=== PATIENT | female | born 1970 | race Caucasian/White ===

== ENCOUNTER 2018-01-07 07:30 | Outpatient (RCR) | payer MEDICAID, SELFPAY ==
--- NOTE | 2017-12-10 08:30 | PTTR_ITS ---
DATE: 12/10/17 SUBJECTIVE: The patient noted that she had reduced feeling of laxity and hyperextension of the L knee while donning the Rock tape, it remains on today. Compliant with HEP. No knee pain since I have last seen her. Therapeutic procedures (59128k8). L quad stretch via PKB, patellofemoral and patellofemoral mobilization all planes. * x See flow sheet: * x Provided skilled instruction in proper exercise performance: proximal core intrinsic stabilization, and hip girdle strengthening to improve myokinetic support of the knee. She then proceeded to wellness program per my direction. Direct treatment time: 30 mins Total treatment time: 45 mins JH/dl
--- NOTE | 2017-12-22 11:09 | PTTR_ITS ---
DATE: 12/22/17 SUBJECTIVE: Has been away on vacation x 1 week, so what not very complaint with her exercises. She did try and practice her kegels frequently. Her knee has overall felt fairly good, but did notice it felt unstable and had some pain referral to the lateral lower leg [place]. She felt more discomfort and slightly unstable when she removed the rock tape. OBJECTIVE: KX applied to all codes N/A Manual therapy: (68015i8). L PF and TF mobilizations all planes for general neurofacilitation IASTM down regulation through L lateral tibia fasica, and patella framing. Rock taping application L knee Demonstrates full, painless ROM Therapeutic procedures (84313a1). * HEP review: * x See flow sheet: * x Provided skilled instruction in proper exercise performance: * Provided skilled manual cues to facilitate proper muscle recruitment and/ or movement pattern: * Other: Finished program with animal attendants and trainers, with less skilled activities. Special Test: Pain with patella compression and gliding, mild crepitus appreciated. Direct treatment time: 30 minutes Total treatment time: 30 minutes Assessment: Minimal improvements thus far, partly due to vacation absence. 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 Expect as we resume frequent strengthening, per POC, will work toward our rehab goals. Plan: Per POC
--- NOTE | 2017-12-24 11:56 | PTTR_ITS ---
DATE: 12/24/17 SUBJECTIVE: Yoana states her knee is feeling good. She has had no difficulty since last being seen. OBJECTIVE: Findings: Demonstrating no limitations in her left knee motion today. No accessory pain. Reapplied Rock tape. Therapeutic procedures (85814n9). * x See flow sheet: * Skilled cueing provided throughout for proper exercise performance. Direct treatment time: 30 minutes Total treatment time: 45 minutes Patient ended with Wellness Program for 15 minutes per my directions to parent trainer at no charge. Assessment: Yoana is responding favorably to P.T. management thus far with reduction of symptoms, but she does require a great deal of cueing for proper body mechanics and movement pattern, so I believe it is fair to say that her poor biomechanical alignment and myokinematics instability would certainly contribute to her patellofemoral mal tracking. Plan: Proceed per POC seeing patient 2x per week. ROCIO/albaro
--- NOTE | 2017-12-29 14:45 | PTTR_ITS ---
DATE: 12/29/17 SUBJECTIVE: Yoana stating that she really had minimal symptoms with her knee. She has some sensations of stiffness occasionally and they are sharp along the medial patella but much improved compared to pre PT status. OBJECTIVE: Therapeutic procedures (33814p6). Cross friction desensitization along the medial patella. * X See flow sheet * X Provided skilled instruction in proper exercise performance Direct treatment time: 30 minutes Total treatment time: 30 minutes
--- NOTE | 2017-12-31 08:00 | PTTR_ITS ---
DATE: 12/31/17 Therapeutic procedures (77268x5). * X See flow sheet: * X Provided skilled instruction in proper exercise performance: completes less skilled activities with wellness trainer supervision. Direct treatment time: 20 mins Total treatment time: 20 mins JH/dl
--- NOTE | 2018-01-05 08:33 | PTTR_ITS ---
DATE: 01/05/18 SUBJECTIVE: Yoana stating that her knee itself is feeling very well. Occasionally , she has to go laterally down her stairs, but this is reduced in frequency and when she does do this she feels like it is just related to overall muscle stiffness. She complains more of bilateral hamstring tightness and glutinitus from her workouts. Today she is having some restriction with L posterior hamstring. OBJECTIVE: Manual therapy: (28899r1).IASTM down regulation through the L calf and hamstring for posterior LE fascial release, followed by prolonged hamstring. Pt is educated in self hamstring stretches utilizing strap, as well at edge of chair. Therapeutic procedures (64300b0). * X See flow sheet: * X Provided skilled instruction in proper exercise performance: and beginning instruction for progression onto MSP. Direct treatment time: 45 min Total treatment time: 45 min ROCIO/dianne
--- NOTE | 2018-01-07 08:11 | PTTR_ITS ---
DATE: 01/07/18 SUBJECTIVE: Knee is feeling great. She feel prepared to transition onto MSP. OBJECTIVE: KX applied to all codes Manual therapy: (24818k). Therapeutic procedures (91358lz/c). Began MSP with minimal cues needed. See flow sheet. Direct treatment time: 0 minutes Total treatment time: 30 minutes Assessment: Symptoms under good control. Demonstrates understanding of strengthening program, to transition onto MSP. Plan: MSP x 1 month.
== END 2018-01-09 23:59 | disposition home or self-care (01) ==
LOC: PT 07:30
PROVIDERS: PCP Family Medicine; Referring Provider Family Medicine; Visit Provider Family Medicine
DX: M22.42 Chondromalacia patellae, left knee (principal); M62.81 Muscle weakness (generalized); R29.898 Other symptoms and signs involving the musculoskeletal system
CPT/HCPCS: 97110; 97140

== ENCOUNTER 2018-03-04 10:07 | Outpatient (REF) | payer MEDICAID, SELFPAY ==
--- NOTE | 2018-03-04 08:30 | PAPFT_PTH ---
PATIENT: Anastasia Thrasher LOC: [facility] U#:[id number] AGE/SX: 47/F ROOM: RE03/04/[address]: Kourtney Bah : 1970 BED: DIS: 03/04/2018 SPEC #: [id number] RECD: 03/04/18 12:55 STATUS: GRETEL RELuz #: [id number] GLORY: 03/04/18 08:[address]: Kourtney Bah DEPT: [facility] Cytology RECD BY: Ana Dwyer Tissues: 1 - CX/ENDOCX FOR PAP SMEARS Procedures: PAP THIN PREP/UVM Screening HPV DNA PROBE Comments: [id number]
== END 2018-03-04 10:27 ==
LOC: NCHCN 10:07
PROVIDERS: PCP Family Medicine; Visit Provider Family Medicine
DX: Z12.4 Encounter for screening for malignant neoplasm of cervix (principal); Z11.51 Encounter for screening for human papillomavirus (HPV); Z00.00 Encounter for general adult medical examination without abnormal findings
CPT/HCPCS: 88142; 87624

== ENCOUNTER 2019-03-09 08:21 | Outpatient (REF) | payer OTHER, SELFPAY ==
[2019-03-09 13:10] LABS: ALT 22 U/L (14-59); AST 12 U/L (15-37); Alkaline Phosphatase 59 U/L (46-116); Anion Gap 10.3 mmol/L (3-11); BUN 13 mg/dL (7-18); Bilirubin, Total 0.6 mg/dL (0.2-1.0); CO2 26.7 mmol/L (21.0-32.0); CREATININE 0.93 mg/dL (0.55-1.02); Calculated LDL 144 mg/dL; Chloride 103 mmol/L (98-107); Cholesterol 224 mg/dL (50-200); Glucose 102 mg/dL (70-100); HDL Cholesterol 44 mg/dL (40-60); Potassium 4.2 mmol/L (3.5-5.1); Sodium 140 mmol/L (136-145); Total Protein 7.1 g/dL (6.4-8.2); Triglyceride 180 mg/dL (30-150)
== END 2019-03-09 08:41 ==
LOC: NCHCN 08:21
PROVIDERS: PCP Family Medicine; Visit Provider Family Medicine
DX: Z00.00 Encounter for general adult medical examination without abnormal findings (principal); I10 Essential (primary) hypertension; E78.5 Hyperlipidemia, unspecified
CPT/HCPCS: 80053; 80061

== ENCOUNTER 2019-04-02 01:24 | Outpatient (CLI) | payer OTHER, SELFPAY ==
--- NOTE | 2019-04-02 14:02 | DI.US_ITS ---
EXAM: US PELVIS AND TRANSVAGINAL CLINICAL HISTORY: MENORRHAGIA X 6 MONTHS, 8-10 WEEK SIZE UTERUS, N92.0 TECHNIQUE: Ultrasound performed using standard protocol. COMPARISON: No exams were available for comparison FINDINGS: The uterus measures 2.4 centimeters long x 7.1 centimeters AP x 7.3 centimeters transverse. There ar e several hypoechoic masses seen within the uterus consistent with fibroids. Largest measures 3.3 ce ntimeters. The endometrial stripe is within normal limits at 8.2 millimeters. The right ovary was n ot visualized. No right adnexal masses seen. The left ovary measures 3.5 x 3.2 x 3.1 centimeters. There is a 2.8 x 2.6 x 2.8 centimeter simple cyst on the left ovary. There is blood flow to the left ovary. No evidence of torsion. No free fluid or hydronephrosis is present. IMPRESSION: Fibroid uterus.
== END 2019-04-02 01:44 ==
PROVIDERS: PCP Family Medicine; Visit Provider Nurse Practitioner Family
DX: N92.0 Excessive and frequent menstruation with regular cycle (principal); N85.2 Hypertrophy of uterus; D25.9 Leiomyoma of uterus, unspecified; N83.292 Other ovarian cyst, left side
CPT/HCPCS: 76830; 76856

== ENCOUNTER 2019-04-29 16:10 | Outpatient (REF) | payer OTHER, SELFPAY ==
--- NOTE | 2019-04-29 15:45 | ENDOMET_PTH ---
PATIENT: Anastasia Thrasher LOC: [facility] U#:[id number] AGE/SX: 48/F ROOM: RE04/29/[address]: Sherry Emanuel : 1970 BED: DIS: 04/29/2019 SPEC #: [id number] RECD: 04/29/19 17:34 STATUS: GRETEL REQ #: [id number] GLORY: 04/29/19 15:[address]: Sherry Emanuel DEPT: Surgical Specimen RECD BY: Ana Dwyer ENTERED: 04/29/19 17:35 SP TYPE: Endomet OTHR DR: Kourtney Bah Tissues: 1 - ENDOMETRIUM BX/ZAIRE Procedures: GROSS AND MICRO LEVEL 4 Comments: [id number]
== END 2019-04-29 16:30 ==
LOC: LBN 16:10
PROVIDERS: PCP Family Medicine; Visit Provider Obstetrics & Gynecology Gynecology
DX: N85.01 Benign endometrial hyperplasia (principal); N93.9 Abnormal uterine and vaginal bleeding, unspecified
CPT/HCPCS: 88305

== ENCOUNTER 2020-03-08 02:46 | Outpatient (CLI) | payer OTHER, SELFPAY ==
--- NOTE | 2020-03-08 11:35 | DI.MAMMO_ITS ---
EXAM: MAMMO SCREENING CLINICAL HISTORY: SCREENING,Z12.31 TECHNIQUE: Mammograms were interpreted according to the usual protocol including computer analysis w [facility] CAD system, tomosynthesis and C-view imaging. COMPARISON: FINDINGS: Breasts are heterogeneously dense. No dominant mass or clumped microcalcification is identified in e ither breast. The current examination is compared with previous examination of March 2011 and all owing for differences in technique there has been no gross interval change in appearance in compariso n with the prior study. IMPRESSION: No specific evidence of malignancy at this time. Routine screening examinations are suggested at ye lul intervals in this age group according to the ACS ACR guidelines . BI-RADS Cat 1 - Negative Breast Density - Category C - Heterogeneously dense
== END 2020-03-08 03:06 ==
PROVIDERS: PCP Family Medicine; Visit Provider Family Medicine
DX: Z12.31 Encounter for screening mammogram for malignant neoplasm of breast (principal)
CPT/HCPCS: 77063; 77067

== ENCOUNTER 2020-03-15 23:08 | Outpatient (REF) | payer OTHER, SELFPAY ==
[2020-03-15 22:56] LABS: ALT 20 U/L (14-59); AST 12 U/L (15-37); Alkaline Phosphatase 51 U/L (46-116); Anion Gap 10.6 mmol/L (3-11); BUN 10 mg/dL (7-18); Bilirubin, Total 0.4 mg/dL (0.2-1.0); CO2 23.4 mmol/L (21.0-32.0); CREATININE 0.89 mg/dL (0.55-1.02); Calcium 8.8 mg/dL (8.5-10.1); Calculated LDL 145 mg/dL (<100); Chloride 105 mmol/L (98-107); Cholesterol 203 mg/dL (<200); Glucose 91 mg/dL (74-106); HDL Cholesterol 38 mg/dL (40-60); Potassium 4.7 mmol/L (3.5-5.1); Sodium 139 mmol/L (136-145); Total Protein 7.2 g/dL (6.4-8.2); Triglyceride 102 mg/dL (<150)
== END 2020-03-15 23:28 ==
LOC: NCHCN 23:08
PROVIDERS: PCP Family Medicine; Visit Provider Family Medicine
DX: E78.5 Hyperlipidemia, unspecified (principal); Z00.00 Encounter for general adult medical examination without abnormal findings; I10 Essential (primary) hypertension
CPT/HCPCS: 80053; 80061

== ENCOUNTER 2021-03-21 16:13 | Outpatient (REF) | payer OTHER, SELFPAY ==
[2021-03-21 16:58] LABS: Cholesterol 233 mg/dL (<200)
[2021-03-21 16:59] LABS: Calculated LDL 162 mg/dL (<100); HDL Cholesterol 42 mg/dL (40-60); Triglyceride 146 mg/dL (<150)
== END 2021-03-21 16:14 | disposition home or self-care (01) ==
LOC: NCHCN 16:13
PROVIDERS: PCP Family Medicine; Visit Provider Family Medicine
DX: I10 Essential (primary) hypertension (principal); E78.5 Hyperlipidemia, unspecified
CPT/HCPCS: 80061

== ENCOUNTER 2021-08-30 09:56 | Outpatient (REF) | payer OTHER, SELFPAY ==
--- NOTE | 2021-08-30 09:00 | PAPFT_PTH ---
PATIENT: Anastasia Thrasher LOC: [facility] U#:[id number] AGE/SX: 50/F ROOM: RE08/30/[address]: Sherry Emanuel : 1970 BED: DIS: 08/30/2021 SPEC #: [id number] RECD: 08/30/21 12:44 STATUS: GRETEL REQ #: [id number] GLORY: 08/30/21 09:[address]: Sherry Emanuel DEPT: [facility] Cytology RECD BY: Ana Dwyer ENTERED: 08/30/21 12:44 SP TYPE: PAPFT OTHR DR: Kourtney Bah Tissues: 1 - CX/ENDOCX FOR PAP SMEARS Procedures: PAP THIN PREP/UVM Screening Comments: [id number] (UNSATISFACTORY FOR EVAULATION)
== END 2021-08-30 09:57 | disposition home or self-care (01) ==
LOC: LBN 09:56
PROVIDERS: PCP Family Medicine; Visit Provider Obstetrics & Gynecology Gynecology
DX: Z12.4 Encounter for screening for malignant neoplasm of cervix (principal); R87.615 Unsatisfactory cytologic smear of cervix
CPT/HCPCS: 88142

== ENCOUNTER 2021-09-25 14:48 | Outpatient (REF) | payer OTHER, SELFPAY ==
[2021-09-25 15:41] LABS: ALT 23 U/L (14-59); AST 15 U/L (15-37); Albumin 3.8 g/dL (3.4-5.0); Alkaline Phosphatase 65 U/L (46-116); Bilirubin, Direct 0.2 mg/dL (0.0-0.2); Bilirubin, Total 0.7 mg/dL (0.2-1.0); Total Protein 7.1 g/dL (6.4-8.2)
[2021-09-25 15:58] LABS: Calculated LDL 86 mg/dL (<100); Cholesterol 146 mg/dL (<200); HDL Cholesterol 40 mg/dL (40-60); Triglyceride 104 mg/dL (<150)
== END 2021-09-25 14:49 | disposition home or self-care (01) ==
LOC: NCHCN 14:48
PROVIDERS: PCP Family Medicine; Visit Provider Family Medicine
DX: E78.5 Hyperlipidemia, unspecified (principal); I10 Essential (primary) hypertension; E66.3 Overweight
CPT/HCPCS: 80061; 80076

== ENCOUNTER → 2021-10-02 02:13 | Outpatient (CLI) | payer OTHER, SELFPAY ==
--- NOTE | 2021-10-02 11:55 | DI.MAMMO_ITS ---
Exam(s) MAMMO SCREENING EXAM: MAMMO SCREENING CLINICAL HISTORY: screening TECHNIQUE: Mammograms were interpreted according to the usual protocol including computer analysis w [facility] CAD system, tomosynthesis and C-view imaging. COMPARISON: FINDINGS: The breasts are of moderate density with fairly symmetrical distribution of fibroglandular tissue. N o dominant mass or clumped microcalcification is identified in either breast. The current examinatio n is compared with previous examination of February 2020 and there has been no gross interval change i n appearance in comparison with the prior study. IMPRESSION: No specific evidence of malignancy at this time. Routine screening examinations are suggested at yea rly intervals in this age group according to the ACS ACR guidelines. BI-RADS Category 1 - Negative Breast Density - Category B - Scattered areas of fibroglandular density
== END ==
PROVIDERS: PCP Family Medicine; Visit Provider Obstetrics & Gynecology Gynecology
DX: Z12.31 Encounter for screening mammogram for malignant neoplasm of breast (principal)
CPT/HCPCS: 77063; 77067

== ENCOUNTER 2022-09-05 02:00 | Outpatient (CLI) | payer OTHER, SELFPAY ==
[2022-09-05 08:50] LABS: HCT 43.9 % (36.0-46.0); HGB 14.6 g/dL (11.2-15.7); MCH 28.9 pg (27.0-33.0); MCHC 33.3 % (32.0-36.0); MCV 87 fL (80-95); MPV 10.2 fL (8.0-11.0); Platelet Count 238 10^3/uL (130-400); RBC 5.05 10^6/uL (3.93-5.22); RDW 12.9 % (11.7-14.6); RDW-SD 40.7 fL; WBC 7.48 10^3/uL (4.4-10.8)
[2022-09-05 10:04] LABS: ALT 25 U/L (14-59); AST 13 U/L (15-37); Albumin 3.8 g/dL (3.4-5.0); Alkaline Phosphatase 72 U/L (46-116); Anion Gap 9.3 mmol/L (3-11); BUN 12 mg/dL (7-18); Bilirubin, Total 0.6 mg/dL (0.2-1.0); CO2 27.7 mmol/L (21.0-32.0); Calcium 9.2 mg/dL (8.5-10.1); Calculated LDL 82 mg/dL (<100); Chloride 103 mmol/L (98-107); Cholesterol 147 mg/dL (<200); Estimated GFR 67.36 (mL/min/1.73m2); Glucose 93 mg/dL (74-106); HDL Cholesterol 44 mg/dL (40-60); Potassium 4.1 mmol/L (3.5-5.1); Sodium 140 mmol/L (136-145); Total Protein 7.9 g/dL (6.4-8.2); Triglyceride 108 mg/dL (<150)
[2022-09-05 10:25] LABS: Vitamin D 25 Total 31.3 ng/mL (30-100)
== END 2022-09-05 02:01 | disposition home or self-care (01) ==
LOC: LBO 02:01
PROVIDERS: PCP Family Medicine; Visit Provider Family Medicine
DX: Z00.00 Encounter for general adult medical examination without abnormal findings (principal); E55.9 Vitamin D deficiency, unspecified; F64.9 Gender identity disorder, unspecified; E78.5 Hyperlipidemia, unspecified; I10 Essential (primary) hypertension; E66.3 Overweight
CPT/HCPCS: 36415; 80053; 80061; 82306; 85027

== ENCOUNTER 2022-10-14 02:18 | Outpatient (CLI) | payer OTHER, SELFPAY ==
--- NOTE | 2022-10-14 | DI.MAMMO_ITS ---
Exam(s) MAMMO SCREENING EXAM: MAMMO SCREENING CLINICAL HISTORY: SCREENING MAMMO Z12.31 TECHNIQUE: Bilateral full field digital CC and MLO mammographic images were obtained with 3D tomosyn thesis and utilizing computer aided detection (CAD). COMPARISON: Available for comparison. FINDINGS: Masses/Architectural Distortion: None seen. Microcalcifications: No suspicious pleomorphic-type are seen. Skin Thickening/Nipple Retraction: None. IMPRESSION: 1. No significant interval change with no specific features of malignancy noted. 2. Unless there is more urgent need, screening mammography is recommended, as per [employer] guidelines. BI-RADS Category 1 - Negative Breast Density - Category B - Scattered areas of fibroglandular density Breast density category C or D implies that the patient has dense breast tissue. Dense breast tissue is very common and is not abnormal but dense breast tissue can make it harder to find cancer on a ma mmogram. Also, dense breast tissue may increase their breast cancer risk. This information about the result of the mammogram report was provided to the patient to raise their awareness. Use this report when you speak with the patient about their risks for breast cancer, which includes their family hist ory. At that time, you may recommend for more screening tests (Ultrasound or MRI) as they might be us eful based on their risk. A negative radiographic report should not delay biopsy if a dominant or clinically suspicious mass is present. Up to ten percent of cancers are not identified on mammography. A negative report may reinforce clinical impression. Adenosis and dense breasts may obscure an underlying neoplasm. False positive reports average 6 to 10%. Patient will receive a letter notifying them of these results.
== END 2022-10-14 02:38 ==
LOC: DI 02:18
PROVIDERS: PCP Family Medicine; Visit Provider Family Medicine
DX: Z12.31 Encounter for screening mammogram for malignant neoplasm of breast (principal)
CPT/HCPCS: 77063; 77067

== ENCOUNTER 2023-01-22 14:36 | Outpatient (REF) | payer OTHER, SELFPAY ==
--- NOTE | 2023-01-22 14:00 | ENDOMET_PTH ---
PATIENT: Anastasia Thrasher LOC: [facility] U#:[id number] AGE/SX: 52/F ROOM: RE01/22/[address]: Sherry Emanuel : 1970 BED: DIS: 01/22/2023 SPEC #: [id number] RECD: 01/22/23 17:38 STATUS: GRETEL REQ #: [id number] GLORY: 01/22/23 14:[address]: Sherry Emanuel DEPT: Surgical Specimen RECD BY: Ana Dwyer ENTERED: 01/22/23 17:39 SP TYPE: Endomet OTHR DR: Kourtney Bah Tissues: 1 - ENDOMETRIUM BX/ZAIRE Procedures: GROSS AND MICRO LEVEL 4 Comments: [id number]
--- NOTE | 2023-01-22 14:00 | PAPFT_PTH ---
PATIENT: Anastasia Thrasher LOC: [facility] U#:[id number] AGE/SX: 52/F ROOM: RE01/22/[address]: Sherry Emanuel : 1970 BED: DIS: 01/22/2023 SPEC #: [id number] RECD: 01/22/23 17:45 STATUS: GRETEL REQ #: [id number] GLORY: 01/22/23 14:[address]: Sherry Emanuel DEPT: [facility] Cytology RECD BY: Ana Dwyer ENTERED: 01/22/23 17:45 SP TYPE: PAPFT OTHR DR: Kourtney Bah Tissues: 1 - CX/ENDOCX FOR PAP SMEARS Procedures: PAP THIN PREP/UVM Screening HPV DNA PROBE Comments: [id number]
== END 2023-01-22 14:37 | disposition home or self-care (01) ==
LOC: LBN 14:36
PROVIDERS: PCP Family Medicine; Visit Provider Obstetrics & Gynecology Gynecology
DX: N85.8 Other specified noninflammatory disorders of uterus (principal); N93.8 Other specified abnormal uterine and vaginal bleeding; Z12.4 Encounter for screening for malignant neoplasm of cervix; R87.618 Other abnormal cytological findings on specimens from cervix uteri; Z11.51 Encounter for screening for human papillomavirus (HPV)
CPT/HCPCS: 88142; 88305; 87624

== ENCOUNTER 2023-09-19 09:38 | Outpatient (CLI) | payer OTHER, SELFPAY ==
[2023-09-19 08:08] LABS: Abs Immature Grans 0.02 10^3/uL (0.0-0.06); Absolute Eosinophil Count 0.23 10^3/uL (0.0-0.7); Absolute Lymphocyte Count 1.92 10^3/uL (1.2-3.4); Absolute Monocyte Count 0.65 10^3/uL (0.1-0.8); Absolute Neutrophil Count 3.62 10^3/uL (1.2-6.7); Basophils % 1.5 %; Eosinophils % 3.5 %; HCT 45.6 % (36.0-46.0); HGB 15.2 g/dL (11.2-15.7); Immature Grans % 0.3 %; Lymphocytes % 29.4 %; MCH 29.5 pg (27.0-33.0); MCHC 33.3 % (32.0-36.0); MCV 88 fL (80-95); MPV 10.6 fL (8.0-11.0); Monocytes % 9.9 %; Neutrophils % 55.4 %; Platelet Count 242 10^3/uL (130-400); RBC 5.16 10^6/uL (3.93-5.22); RDW-SD 42.5 fL; WBC 6.54 10^3/uL (4.4-10.8)
[2023-09-19 08:53] LABS: ALT 23 U/L (14-59); AST 17 U/L (15-37); Alkaline Phosphatase 70 U/L (46-116); Anion Gap 9.1 mmol/L (3-11); BUN 14 mg/dL (7-18); Bilirubin, Total 0.9 mg/dL (0.2-1.0); CO2 24.9 mmol/L (21.0-32.0); Calcium 9.1 mg/dL (8.5-10.1); Calculated LDL 77 mg/dL (<100); Chloride 105 mmol/L (98-107); Cholesterol 143 mg/dL (<200); Estimated GFR 66.95 (mL/min/1.73m2); Glucose 103 mg/dL (74-106); HDL Cholesterol 45 mg/dL (40-60); Potassium 4.2 mmol/L (3.5-5.1); Sodium 139 mmol/L (136-145); Total Protein 7.6 g/dL (6.4-8.2); Triglyceride 109 mg/dL (<150)
[2023-09-19 09:11] LABS: Vitamin D 25 Total 34.1 ng/mL (30-100)
== END 2023-09-19 09:39 | disposition home or self-care (01) ==
LOC: LBO 09:38
PROVIDERS: PCP Family Medicine; Visit Provider Family Medicine
DX: E55.9 Vitamin D deficiency, unspecified (principal); E78.5 Hyperlipidemia, unspecified; I10 Essential (primary) hypertension; Z00.00 Encounter for general adult medical examination without abnormal findings
CPT/HCPCS: 36415; 80053; 80061; 82306; 85025

== ENCOUNTER 2024-02-20 00:32 | Outpatient (CLI) | payer OTHER, SELFPAY ==
--- NOTE | 2024-02-20 12:00 | DI.MAMMO_ITS ---
Exam(s) MAMMO SCREENING EXAM: MAMMO SCREENING CLINICAL HISTORY: screening. TECHNIQUE: Bilateral full field digital CC and MLO mammographic images were obtained with 3D tomosyn thesis and utilizing computer aided detection (CAD). COMPARISON: Prior mammograms were reviewed. FINDINGS: There has been no significant change in the appearance and distribution of the fibroglandular tissue. There are no CAD designations. There are no new spiculated masses nor malignant appearing microcalcification groups. There is no significant architectural distortion nor skin thickening-retraction. IMPRESSION: No radiographic evidence of malignancy. BI-RADS Category 1 - Negative Breast Density - Category B - Scattered areas of fibroglandular density Breast density Category C or D implies that the patient has dense breast tissue. Dense breast tissue can make it harder to find cancer on a mammogram. Dense breast tissue is also associated with an incr eased risk of breast cancer. This information about the result of the mammogram report was provided to the patient to raise their awareness. Use this report when you speak with the patient about their risks for breast cancer, which includes their family history. At that time, you may recommend additional screening tests (Ultrasoun d or MRI) as these tests may add significant information. A negative radiographic report should not delay biopsy if a dominant or clinically suspicious mass is present. Up to ten percent of cancers are not identified on mammography. A negative report may reinforce clinical impression. Adenosis and dense breasts may obscure an underlying neoplasm. False positive reports average 6 to 10%. Patient will receive a letter notifying them of these results.
== END 2024-02-20 00:52 ==
LOC: DI 00:32
PROVIDERS: PCP Family Medicine; Visit Provider Obstetrics & Gynecology Gynecology
DX: Z12.31 Encounter for screening mammogram for malignant neoplasm of breast (principal)
CPT/HCPCS: 77063; 77067

== ENCOUNTER 2024-09-21 12:08 | Outpatient (REF) | payer OTHER, SELFPAY ==
[2024-09-21 21:56] LABS: Iron 71 ug/dL (50-170); Total Iron Binding Capacity 327 ug/dL (250-450); Transferrin Sat 22 % (15-50)
[2024-09-21 22:19] LABS: ALT 33 U/L (14-59); AST 21 U/L (15-37); Alkaline Phosphatase 91 U/L (46-116); Anion Gap 6.9 mmol/L (3-11); BUN 15 mg/dL (7-18); Bilirubin, Total 0.8 mg/dL (0.2-1.0); CO2 28.1 mmol/L (21.0-32.0); CREATININE 0.8 mg/dL (0.55-1.02); Calcium 9.5 mg/dL (8.5-10.1); Calculated LDL 98 mg/dL (<100); Chloride 103 mmol/L (98-107); Cholesterol 188 mg/dL (<200); Estimated GFR 86.96 (mL/min/1.73m2); Ferritin 57 ng/mL (8-252); Glucose 103 mg/dL (74-106); HDL Cholesterol 67 mg/dL (>or=50); Potassium 4.2 mmol/L (3.5-5.1); Sodium 138 mmol/L (136-145); Total Protein 7.1 g/dL (6.4-8.2); Triglyceride 115 mg/dL (<150); Vitamin D 25 Total 33 ng/mL (30-100)
== END 2024-09-21 12:09 | disposition home or self-care (01) ==
LOC: NCHCN 12:08
PROVIDERS: PCP Family Medicine; Visit Provider Family Medicine
DX: I10 Essential (primary) hypertension (principal); E78.5 Hyperlipidemia, unspecified; E55.9 Vitamin D deficiency, unspecified; N95.1 Menopausal and female climacteric states
CPT/HCPCS: 80053; 80061; 82306; 82728; 83540; 83550

== ENCOUNTER 2025-02-17 17:51 | Outpatient (REF) | payer OTHER, SELFPAY ==
--- NOTE | 2025-02-17 16:00 | PAPFT_PTH ---
PATIENT: Anastasia Thrasher LOC: [facility] U#:[id number] AGE/SX: 54/F ROOM: RE02/17/[address]: Maria Dolores Montero MD : 1970 BED: DIS: 02/17/2025 SPEC #: [id number] RECD: 02/17/25 17:55 STATUS: TIFFANYTraci REQ #: [id number] GLORY: 02/17/25 16:[address]: Maria Dolores Montero DEPT: [facility] Cytology RECD BY: Ana Dwyer ENTERED: 02/17/25 17:56 SP TYPE: PAPFT OTHR DR: Kourtney Bah Tissues: 1 - CX/ENDOCX FOR PAP SMEARS Procedures: PAP THIN PREP/UVM Screening HPV DNA PROBE Comments: [id number] (HPV 16 & 18/45)
== END 2025-02-17 17:52 | disposition home or self-care (01) ==
LOC: LBN 17:51
PROVIDERS: PCP Family Medicine; Visit Provider Obstetrics & Gynecology
DX: Z12.4 Encounter for screening for malignant neoplasm of cervix (principal)
CPT/HCPCS: 88142; 87624

== ENCOUNTER 2025-03-17 00:31 | Outpatient (CLI) | payer OTHER, SELFPAY ==
--- NOTE | 2025-03-17 14:17 | W.NUTRFU ---
Date of service: 03/17/25 Time of Service: 01:00 Nutrition Note NOTE: Met with pt in person for nutrition counseling. 54 yr old female pt who presents with obesity and struggles with food intake and wt, per provider note. Pt reports skipping breakfast most of the time, but if she does have breakfast it is usually a carb such as bagels or croissants. Often snacks after dinner. Pt tried weight watchers years ago which helped her lose 30#. Doesn't like certain textures like beans. Reviewed the importance of getting enough protein in her diet for wt loss, as well as exercise/strength training. Calculated energy requirements per her request: 1700 kcal and 127g protein for wt loss. Also spoke about getting enough fiber and reducing added sugars. Reviewed together the protein and fiber components of the nutrition label. Reiterated to her that it is about fat loss and muscle gain, rather than just pure wt loss. Spoke about ways to add more protein to her diet such as lean animal protein, whey protein, etc. Set goals of eating more unprocessed food as able to, consuming at least 30g fiber, limiting added sugars to <30g. Will send pt resources on menu planning. Pt is aware she can contact dietitian if she has any questions or would like to schedule a follow-up appointment. Time Spent in Nutritional Counseling and Treatment: 45 mins
== END 2025-03-17 00:32 | disposition home or self-care (01) ==
LOC: DS 00:31
PROVIDERS: PCP Family Medicine; Visit Provider Dietitian, Registered
DX: E66.9 Obesity, unspecified (principal)
CPT/HCPCS: 00123; 97802